=== PATIENT | male | born 1930 | race Caucasian/White ===

== ENCOUNTER 2018-12-17 12:29 | Inpatient (IN) | payer MEDICARE ==
[2018-12-17] MEDS ORDERED: NORMAL SALINE 1000 ML 500 ML IV ONE (12:43)
--- NOTE | 2018-12-17 13:17 | ER Document Report ---
Addendum entered and electronically signed by EMEKA BARAKAT PA 12/17/18 20:34: Course - Re-evaluation Re-evalutation: 12/17/18 20:32 Patient is still waiting to be transported upstairs. Nurse and respiratory therapist informed me that patient has 88% pulse oxygen saturation despite being on BiPAP with FiO2 of 100%. Patient was saturating in the 70s without the BiPAP. Patient with acute renal failure, hyperkalemia, sepsis. I did go to bedside, patient is currently 90% on the BiPAP. Family fortunately is at bedside, I did discuss with them that patient is in very poor condition and there is a good chance that he will pass away tonight or within the next 24 hours. They confirm that he is DNR/DNI and they state they are in understanding of his critical condition. They have no additional questions at this time. - Vital Signs Vital signs: Temp Pulse Resp BP Pulse Ox 97.9 F 133 H 27 H 137/60 H 80 L 12/17/18 18:00 12/17/18 18:01 12/17/18 20:23 12/17/18 14:53 12/17/18 20:23 - Laboratory Result Diagrams: 12/17/18 14:21 12/17/18 15:58 Laboratory results interpreted by me: 12/17/18 12/17/18 12/17/18 14:21 15:58 16:25 WBC 18.9 H RBC 3.67 L Hgb 10.6 L Hct 34.1 L MCHC 31.2 L RDW 16.6 H Plt Count 511 H Seg Neuts % (Manual) 84 H Abs Neuts (Manual) 15.9 H Sodium 132.6 L Potassium 6.8 H* Chloride 97 L Carbon Dioxide 10 L* Anion Gap 26 H BUN 98 H Creatinine 5.09 H Est GFR ( Amer) 13 L Est GFR (Non-Af Amer) 11 L Glucose 422 H* Lactic Acid 4.6 H Total Bilirubin 1.9 H Direct Bilirubin 1.6 H Alkaline Phosphatase 230 H Urine Protein Urine Glucose (UA) Urine Blood Ur Leukocyte Esterase 12/17/18 16:28 WBC RBC Hgb Hct MCHC RDW Plt Count Seg Neuts % (Manual) Abs Neuts (Manual) Sodium Potassium Chloride Carbon Dioxide Anion Gap BUN Creatinine Est GFR ( Amer) Est GFR (Non-Af Amer) Glucose Lactic Acid Total Bilirubin Direct Bilirubin Alkaline Phosphatase Urine Protein 100 H Urine Glucose (UA) 50 H Urine Blood MODERATE H Ur Leukocyte Esterase MODERATE H Original Note: ED General - General Chief Complaint: Altered Mental Status Stated Complaint: ABDOMINAL PAIN Time Seen by Provider: 12/17/18 12:36 Primary Care Provider: MAGGIE BROWN MD [Primary Care Provider] - Follow up as needed Notes: 88-year-old male presents to the emergency department for altered mental status x1 day, nausea and vomiting, and seizure activity last night. He was brought in by EMS and report received from them. Patient is alert to self place and year but did not know his age. Initial vital signs were blood pressure of 76/38 and heart rate of 109. Difficult to obtain ROS from patient and she is hard to understand and is somewhat altered. Patient is very cachectic. Is a resident of [place]. TRAVEL OUTSIDE OF THE [place] IN LAST 30 DAYS: No - Related Data Allergies/Adverse Reactions: No Known Allergies Allergy (Unverified 12/09/18 13:16) Past Medical History - Social History Smoking Status: Unknown if Ever Smoked Family History: Reviewed & Not Pertinent - Past Medical History Cardiac Medical History: Reports: Hx Hypercholesterolemia, Hx Hypertension Endocrine Medical History: Reports: Hx Diabetes Mellitus Type 2, Hx Hypothyroidism Renal/ Medical History: Denies: Hx Peritoneal Dialysis Psychiatric Medical History: Reports: Hx Dementia Past Surgical History: Reports: Other - Past surgical history is not available. Review of Systems - Review of Systems -: Yes ROS unobtainable due to patient's medical condition Physical Exam - Vital signs Vitals: Temp Pulse Resp BP Pulse Ox 95.8 F L 106 H 21 H 121/62 97 12/17/18 12:30 12/17/18 12:30 12/17/18 12:30 12/17/18 12:30 12/17/18 12:30 - Notes Notes: PHYSICAL EXAMINATION: Reviewed vital signs and charting by RN GENERAL: Alert. No acute distress. HEAD: Normocephalic, atraumatic. EYES: Pupils equal and round. Extraocular movements intact. ENT: Oral mucosa dry, tongue midline. NECK: Full range of motion. Trachea midline. LUNGS: Clear to auscultation bilaterally, no wheezes, rales, or rhonchi. No respiratory distress. HEART: Regular rate and rhythm. No murmur ABDOMEN: soft, non-tender. Non-distended. Bowel sounds present. no McBurney's point tenderness, no Sparks sign. EXTREMITIES: Moves all 4 extremities spontaneously. No edema, No cyanosis. Normal distal neurovascular exam BACK: No CVAT NEUROLOGIC: Oriented and appropriate. Normal speech. PSYCH: Normal affect, normal mood. SKIN: Warm, dry, normal turgor. No rashes or lesions noted. Course - Re-evaluation Re-evalutation: 12/17/18 13:17 Cachectic and hypotensive. Patient is a DNR. We will get blood work and fluid resuscitate him. CT head will be obtained. 12/17/18 16:55 CT head unremarkable for any intracranial pathology. Patient has a significant leukocytosis of 18,900. Lactate 4.6. Discussed with Dr. Valle supervising physician. He stated to give 1 L normal saline and Rocephin 1 g IV. Patient also with a potassium of 6.8, glucose 422, and bicarb of 10. Calcium gluconate 2 g IV ordered with insulin 10 units. Also, will give 1 amp of bicarb. Urine sent to the lab and is currently pending chest x-ray taken and radiologist read pending. I initiated contact with Dr. Vizcaino, hospitalist who is requesting the work-up to be complete. 12/17/18 17:15 EKG obtained and does show globally peaked T waves. Calcium gluconate has been initiated. 12/17/18 18:16 Patient is getting his calcium gluconate. Second liter normal saline ordered. I spoke with Dr. Carlson who wanted to find out if the family would want to dialyze. I spoke with Dr. Valle who felt that the patient should not be dialyzed is a DNR. He called Dr. Robi Anthony, hammerer, who agreed that patient should not be dialyzed. I then called Dr. Carlson back and clarified the wishes and accepted patient for full admission. - Vital Signs Vital signs: Temp Pulse Resp BP Pulse Ox 97.9 F 133 H 35 H 137/60 H 89 L 12/17/18 18:00 12/17/18 18:01 12/17/18 18:01 12/17/18 14:53 12/17/18 18:01 - Laboratory Result Diagrams: 12/17/18 14:21 12/17/18 15:58 Laboratory results interpreted by me: 12/17/18 12/17/18 12/17/18 14:21 15:58 16:25 WBC 18.9 H RBC 3.67 L Hgb 10.6 L Hct 34.1 L MCHC 31.2 L RDW 16.6 H Plt Count 511 H Seg Neuts % (Manual) 84 H Abs Neuts (Manual) 15.9 H Sodium 132.6 L Potassium 6.8 H* Chloride 97 L Carbon Dioxide 10 L* Anion Gap 26 H BUN 98 H Creatinine 5.09 H Est GFR ( Amer) 13 L Est GFR (Non-Af Amer) 11 L Glucose 422 H* Lactic Acid 4.6 H Total Bilirubin 1.9 H Direct Bilirubin 1.6 H Alkaline Phosphatase 230 H Urine Protein Urine Glucose (UA) Urine Blood Ur Leukocyte Esterase 12/17/18 16:28 WBC RBC Hgb Hct MCHC RDW Plt Count Seg Neuts % (Manual) Abs Neuts (Manual) Sodium Potassium Chloride Carbon Dioxide Anion Gap BUN Creatinine Est GFR ( Amer) Est GFR (Non-Af Amer) Glucose Lactic Acid Total Bilirubin Direct Bilirubin Alkaline Phosphatase Urine Protein 100 H Urine Glucose (UA) 50 H Urine Blood MODERATE H Ur Leukocyte Esterase MODERATE H Discharge - Discharge Clinical Impression: Lactic acidosis, Hyperkalemia, Generalized weakness Sepsis Qualifiers: Sepsis type: sepsis due to unspecified organism Qualified Code(s): A41.9 - Sepsis, unspecified organism Urinary tract infection Qualifiers: Urinary tract infection type: acute cystitis Hematuria presence: with hematuria Qualified Code(s): N30.01 - Acute cystitis with hematuria Altered mental status Qualifiers: Altered mental status type: disorientation Qualified Code(s): R41.0 - Disorientation, unspecified Acute on chronic renal failure Qualifiers: Acute renal failure type: unspecified Chronic kidney disease stage: unspecified stage Qualified Code(s): N17.9 - Acute kidney failure, unspecified; N18.9 - Chronic kidney disease, unspecified Disposition: ADMITTED INPATIENT Admitting Provider: BENJI Baldwin Unit Admitted: [facility] Referrals: MAGGIE BROWN MD [Primary Care Provider] - Follow up as needed
[2018-12-17 14:40] LABS: HEMATOCRIT 34.1 % (37.9-51.0); HEMOGLOBIN 10.6 g/dL (13.5-17.0); MEAN CORPUSCULAR HGB CONC 31.2 g/dL (32.0-36.0); PLATELET COUNT 511 10^3/uL (150-450); RED BLOOD COUNT 3.67 10^6/uL (4.35-5.55); RED CELL DISTRIBUTION WIDTH 16.6 % (11.5-14.0); WHITE BLOOD COUNT 18.9 10^3/uL (4.0-10.5)
[2018-12-17 15:08] LABS: MEAN CORPUSCULAR VOLUME 93 fl (80-97)
[2018-12-17 15:10] LABS: ABSOLUTE LYMPHOCYTES# (MANUAL) 2.5 10^3/uL (0.5-4.7); ABSOLUTE MONOCYTES # (MANUAL) 0.6 10^3/uL (0.1-1.4); ABSOLUTE NEUTROPHILS# (MANUAL) 15.9 10^3/uL (1.7-8.2); BASOPHILS % (MANUAL) 0 % (0-2); EOSINOPHILS % (MANUAL) 0 % (0-6); LYMPHOCYTES % (MANUAL) 13 % (13-45); MONOCYTES % (MANUAL) 3 % (3-13); SEGMENTED NEUTROPHILS % (MAN) 84 % (42-78); TOTAL CELLS COUNTED 100
[2018-12-17 15:12] LABS: PLATELET CLUMPS PRESENT; PLATELET COMMENT ADEQUATE; RBC MORPHOLOGY COMMENT MN
--- NOTE | 2018-12-17 15:15 | RADIOLOGY REPORT (SQ) ---
EXAM DESCRIPTION: CT HEAD WITHOUT COMPLETED DATE/TIME: 12/17/2018 3:05 pm REASON FOR STUDY: AMS COMPARISON: None. TECHNIQUE: Axial images acquired through the brain without intravenous contrast. Images reviewed wi th bone, brain and subdural windows. Additional sagittal and coronal reconstructions were generated. Images stored on PACS. All CT scanners at this facility use dose modulation, iterative reconstruction, and/or weight based d osing when appropriate to reduce radiation dose to as low as reasonably achievable (ALARA). [facility]: Dose Right [facility]: CareDose [facility]: Dose Right [facility]: Teradose 4D [facility]: [employer] RADIATION DOSE: CT Rad equipment meets quality standard of care and radiation dose reduction techniq ues were employed. CTDIvol: 23.1 mGy. DLP: 499 mGy-cm.mGy. LIMITATIONS: None. FINDINGS: VENTRICLES: Prominent. CEREBRUM: No masses. No hemorrhage. No midline shift. Areas of low density in the white matter mos t likely due to chronic micro-vascular ischemic change. No evidence for acute infarction. CEREBELLUM: No masses. No hemorrhage. No alteration of density. No evidence for acute infarction. EXTRAAXIAL SPACES: Age-related involutional change. No fluid collections. No masses. ORBITS AND GLOBE: No intra- or extraconal masses. Normal contour of globe without masses. CALVARIUM: No fracture. PARANASAL SINUSES: No fluid or mucosal thickening. SOFT TISSUES: No mass or hematoma. OTHER: No other significant finding. IMPRESSION: CHRONIC CHANGES OF ATROPHY AND MICROVASCULAR ISCHEMIA. NO ACUTE PROCESS. EVIDENCE OF ACUTE STROKE: NO. TECHNICAL DOCUMENTATION: JOB ID: [id number] Quality ID # [id number]: Final reports with documentation of one or more dose reduction techniques (e.g., Au tomated exposure control, adjustment of the mA and/or kV according to patient size, use of iterative reconstruction technique) 2010 [employer]- All Rights Reserved Reading location - IP/workstation name: [email or web address]
[2018-12-17] MEDS ORDERED: CEFTRIAXONE 1 GM/D5W RTU 1 GM/50 ML RTUPB IV ONE (16:28)
[2018-12-17 16:29] LABS: ALANINE AMINOTRANSFERASE 49 U/L (21-72); ALBUMIN 3.7 g/dL (3.5-5.0); ALKALINE PHOSPHATASE 230 U/L (38-126); ASPARTATE AMINO TRANSFERASE 54 U/L (17-59); BILIRUBIN,DIRECT 1.6 mg/dL (0.0-0.4); BILIRUBIN,TOTAL 1.9 mg/dL (0.2-1.3); BLOOD UREA NITROGEN 98 mg/dL (7-20); CALCIUM 9.2 mg/dL (8.4-10.2); TOTAL PROTEIN 7.5 g/dL (6.3-8.2)
[2018-12-17 16:34] LABS: CHLORIDE 97 mmol/L (98-107); SODIUM 132.6 mmol/L (137-145)
[2018-12-17 16:41] LABS: ANION GAP 26 (5-19)
[2018-12-17 16:43] LABS: GLUCOSE 422 mg/dL (75-110)
[2018-12-17 16:44] LABS: CARBON DIOXIDE 10 mmol/L (22-30); POTASSIUM 6.8 mmol/L (3.6-5.0)
[2018-12-17] MEDS ORDERED: CALCIUM GLUCONATE 1000 MG/10 ML INJ IV ONE (16:47)
[2018-12-17] MEDS ORDERED: INSULIN REG, HUMAN 100 UNIT/ML 3 ML VIAL (PYX) IV ONE (16:50)
[2018-12-17 17:08] LABS: APPEARANCE,URINE TURBID; BILIRUBIN,URINE NEGATIVE (NEGATIVE); COLOR,URINE YELLOW; GLUCOSE, URINE 50 mg/dL (NEGATIVE); KETONES,URINE NEGATIVE (NEGATIVE); LEUKOCYTE ESTERASE,URINE MODERATE (NEGATIVE); NITRITE,URINE NEGATIVE (NEGATIVE); PROTEIN,URINE 100 mg/dL (NEGATIVE); URINE SPECIFIC GRAVITY 1.011; UROBILINOGEN,URINE NEGATIVE mg/dL (<2.0)
[2018-12-17] MEDS ORDERED: DEXTROSE 5%-WATER 1000 ML 1,000 ML with SODIUM BICARBONATE 100 MEQ IV PRN ×4 (17:16→18:34)
[2018-12-17] MEDS ORDERED: NORMAL SALINE 1000 ML 1,000 ML IV ONE (17:36)
--- NOTE | 2018-12-17 17:37 | RADIOLOGY REPORT (SQ) ---
EXAM DESCRIPTION: CHEST SINGLE VIEW COMPLETED DATE/TIME: 12/17/2018 4:40 pm REASON FOR STUDY: AMS COMPARISON: 12/09/2018 TECHNIQUE: Single frontal radiographic view of the chest acquired. NUMBER OF VIEWS: One view. LIMITATIONS: None. FINDINGS: LUNGS AND PLEURA: No pneumothorax. No consolidation or pleural effusion. MEDIASTINUM AND HILAR STRUCTURES: Stable. HEART AND VASCULAR STRUCTURES: Stable. BONES: No acute findings. HARDWARE: None in the chest. OTHER: No other significant finding. IMPRESSION: NO ACUTE FINDINGS. TECHNICAL DOCUMENTATION: JOB ID: [id number] [place]-72 2010 [employer]- All Rights Reserved Reading location - IP/workstation name: [email or web address]
[2018-12-17] MEDS ORDERED: ACETAMINOPHEN 650 MG SUPP.RECT PR PRN (18:20)
[2018-12-17] MEDS ORDERED: ONDANSETRON HCL INJ/PF 4 MG/2 ML SDV IV PRN (18:20)
[2018-12-17] MEDS ORDERED: DEXTROSE 50%-WATER 25 GM/50 ML DISP.SYRIN IV PRN ×2 (18:32)
[2018-12-17] MEDS ORDERED: GLUCAGON,HUMAN RECOMB 1 MG INJ IM PRN (18:32)
[2018-12-17] MEDS ORDERED: DEXTROSE 40% GEL 15 GM TUBE PO PRN ×2 (18:32)
[2018-12-17] MEDS ORDERED: SODIUM POLYSTYRENE SULFONATE 15 GM/60 ML PO ONE (18:52)
--- NOTE | 2018-12-17 19:19 | PDOC H&P ---
History of Present Illness Admission Date/PCP: 12/17/18 18:41 MAGGIE BROWN MD Patient complains of: Nausea, vomiting and abdominal pain History of Present Illness: SUDHIR LOYA is a 88 year old male with past medical history of dementia, chronic kidney disease stage IV, hyperkalemia, hypertension and diabetes. He presented to [facility]'s emergency room this afternoon with complaints of nausea, vomiting abdominal pain for the last 24 hours from [facility]. Patient had been recently hospitalized at [facility] on 12/01/2018 to 12/02/2018 with hyperkalemia and chest pain. His potassium at that time was 5.6. He was ruled out for acute coronary syndrome. BUN was 75 and creatinine was 4.25. He was discharged back to [facility] for continued care. Patient presently is difficult to understand. He is unable to answer questions when asked. Unfortunately there is no family at the bedside either. Past Medical History Cardiac Medical History: Reports: Hyperlipidema, Hypertension Pulmonary Medical History: Reports: None EENT Medical History: Reports: None Endocrine Medical History: Reports: Diabetes Mellitus Type 2, Hypothyroidism Renal/ Medical History: Reports: Chronic Kidney Disease Malignancy Medical History: Reports: None GI Medical History: Reports: None Musculoskeltal Medical History: Reports: None Skin Medical History: Reports: None Psychiatric Medical History: Reports: Dementia Hematology: Reports: Anemia Infectious Medical History: Reports: None Past Surgical History Past Surgical History: Reports: Other - Past surgical history is not available. Social History Information Source: Emergency Med Personnel, Outside Facility Records Lives with: Skilled Nursing Smoking Status: Unknown if Ever Smoked Frequency of Alcohol Use: None Hx Recreational Drug Use: No Drugs: None Hx Prescription Drug Abuse: No - Advance Directive Resuscitation Status: Do Not Resuscitate Family History Family History: Reviewed & Not Pertinent Parental Family History Reviewed: No Children Family History Reviewed: No Sibling(s) Family History Reviewed.: No Medication/Allergy Home Medications: Unobtainable 12/17/18 Allergies/Adverse Reactions: No Known Allergies Allergy (Unverified 12/09/18 13:16) Review of Systems ROS unobtainable: Due to mental status Physical Exam Vital Signs: Temp Pulse Resp BP Pulse Ox 97.9 F 133 H 35 H 137/60 H 89 L 12/17/18 18:00 12/17/18 18:01 12/17/18 18:01 12/17/18 14:53 12/17/18 18:01 Intake & Output 12/16/18 12/17/18 12/18/18 06:59 06:59 06:59 Intake Total 550 Balance 550 Weight 73.4 kg General appearance: PRESENT: thin, well-developed, other - elderly, ashen Eye exam: PRESENT: conjunctiva pale Ear exam: PRESENT: normal external ear exam Mouth exam: PRESENT: dry mucosa Teeth exam: PRESENT: edentulous Neck exam: ABSENT: carotid bruit, JVD, lymphadenopathy, thyromegaly Respiratory exam: PRESENT: decreased breath sounds, symmetrical, tachypnea Cardiovascular exam: PRESENT: +S1, +S2, tachycardia Pulses: PRESENT: normal carotid pulses, normal radial pulses Vascular exam: PRESENT: normal capillary refill GI/Abdominal exam: PRESENT: normal bowel sounds, soft. ABSENT: distended, guarding, mass, organolmegaly, rebound, tenderness Rectal exam: PRESENT: deferred Extremities exam: PRESENT: full ROM. ABSENT: calf tenderness, clubbing, pedal edema Musculoskeletal exam: PRESENT: normal inspection Neurological exam: PRESENT: altered, CN II-XII grossly intact, other - speech is garbled and uncomprehensible Psychiatric exam: PRESENT: flat affect Skin exam: PRESENT: dry, pallor, warm Results Laboratory Results: 12/17/18 14:21 12/17/18 15:58 12/17/18 12/17/18 12/17/18 14:21 14:21 15:37 WBC 18.9 H RBC 3.67 L Hgb 10.6 L Hct 34.1 L MCV 93 D MCH 29.0 MCHC 31.2 L RDW 16.6 H Plt Count 511 H Seg Neutrophils % Not Reportable Lymphocytes % Not Reportable Monocytes % Not Reportable Eosinophils % Not Reportable Basophils % Not Reportable Absolute Neutrophils Not Reportable Absolute Lymphocytes Not Reportable Absolute Monocytes Not Reportable Absolute Eosinophils Not Reportable Absolute Basophils Not Reportable Sodium Cancelled Potassium Cancelled Chloride Cancelled Carbon Dioxide Cancelled Anion Gap Cancelled BUN Cancelled Creatinine Cancelled Est GFR ( Amer) Cancelled Est GFR (Non-Af Amer) Cancelled Glucose Cancelled Lactic Acid Cancelled Calcium Cancelled Total Bilirubin Cancelled AST Cancelled ALT Cancelled Alkaline Phosphatase Cancelled Total Protein Cancelled Albumin Cancelled Urine Color Urine Appearance Urine pH Ur Specific [place]et Urine Protein Urine Glucose (UA) Urine Ketones Urine Blood Urine Nitrite Ur Leukocyte Esterase Urine WBC (Auto) Urine RBC (Auto) 12/17/18 12/17/18 12/17/18 15:58 16:25 16:28 WBC RBC Hgb Hct MCV MCH MCHC RDW Plt Count Seg Neutrophils % Lymphocytes % Monocytes % Eosinophils % Basophils % Absolute Neutrophils Absolute Lymphocytes Absolute Monocytes Absolute Eosinophils Absolute Basophils Sodium 132.6 L Potassium 6.8 H* Chloride 97 L Carbon Dioxide 10 L* Anion Gap 26 H BUN 98 H Creatinine 5.09 H Est GFR ( Amer) 13 L Est GFR (Non-Af Amer) 11 L Glucose 422 H* Lactic Acid 4.6 H Calcium 9.2 Total Bilirubin 1.9 H AST 54 ALT 49 Alkaline Phosphatase 230 H Total Protein 7.5 Albumin 3.7 Urine Color YELLOW Urine Appearance TURBID Urine pH 5.0 Ur Specific Burnet 1.011 Urine Protein 100 H Urine Glucose (UA) 50 H Urine Ketones NEGATIVE Urine Blood MODERATE H Urine Nitrite NEGATIVE Ur Leukocyte Esterase MODERATE H Urine WBC (Auto) >182 Urine RBC (Auto) 11 Impressions: Head CT 12/17/18 12:37 IMPRESSION: CHRONIC CHANGES OF ATROPHY AND MICROVASCULAR ISCHEMIA. NO ACUTE PROCESS. EVIDENCE OF ACUTE STROKE: NO. Chest X-Ray 12/17/18 15:30 IMPRESSION: NO ACUTE FINDINGS. Assessment and Plan - Diagnosis (1) Acute on chronic renal failure Qualifiers: Acute renal failure type: unspecified Chronic kidney disease stage: unspecified stage Qualified Code(s): N17.9 - Acute kidney failure, unspecified; N18.9 - Chronic kidney disease, unspecified Is this a current diagnosis for this admission?: Yes Plan: Patient will be placed on IV hydration with D5W and sodium bicarb. He was discharged last week with a creatinine of 4.25. Is found to have urinary tract infection as well. He has also been vomiting over the last 24 hours (2) Hyperkalemia Is this a current diagnosis for this admission?: Yes Plan: Patient has been given calcium gluconate and insulin in the emergency room. He will be given Ventassa orally, nursing does not think patient will take Ka yexalate. Will monitor chemistry every 6 hours overnight. Family is aware that he is critically ill according to the emergency room provider. (3) Lactic acidosis Is this a current diagnosis for this admission?: Yes Plan: He will be given sodium bicarbonate and D5W. At 100 cc/h (4) Sepsis Qualifiers: Sepsis type: sepsis due to unspecified organism Qualified Code(s): A41.9 - Sepsis, unspecified organism Is this a current diagnosis for this admission?: Yes Plan: Patient has obvious urinary tract infection. Blood cultures x2 have been obtained. He was started on IV ceftriaxone. Cultures were pending (5) Urinary tract infection Qualifiers: Urinary tract infection type: acute cystitis Hematuria presence: with hematuria Qualified Code(s): N30.01 - Acute cystitis with hematuria Is this a current diagnosis for this admission?: Yes Plan: As above. (7) Diabetes 1.5, managed as type 1 Is this a current diagnosis for this admission?: Yes Plan: Patient will be placed on sliding scale coverage every 6 hours. He will be n.p.o. except for ice chips and meds (8) Altered mental status Qualifiers: Altered mental status type: disorientation Qualified Code(s): R41.0 - Disorientation, unspecified Is this a current diagnosis for this admission?: Yes Plan: Dementia. (9) Generalized weakness Is this a current diagnosis for this admission?: Yes Plan: Unsure what patient's baseline - Time Time Spent with patient: 35 or more minutes Total Critical Time (Minutes): 30 Medications reviewed and adjusted accordingly: Yes Anticipated discharge: SNF - Inpatient Certification Based on my medical assessment, after consideration of the patient's comorbidities, presenting symptoms, or acuity I expect that the services needed warrant INPATIENT care.: Yes I certify that my determination is in accordance with my understanding of Medicare's requirements for reasonable and necessary INPATIENT services [42 CFR 412.3e].: Yes Medical Necessity: Need For IV Fluids - Patient would benefit from hospice consult unfortunately family is presently not available
[2018-12-17] MEDS ORDERED: PATIROMER 8.4 GM SUSP PACKET PO ONE (20:00)
[2018-12-17 20:41] LABS: BLOOD UREA NITROGEN 93 mg/dL (7-20); CALCIUM 9.5 mg/dL (8.4-10.2); GLUCOSE 347 mg/dL (75-110)
[2018-12-17 20:47] LABS: CHLORIDE 102 mmol/L (98-107); SODIUM 131.7 mmol/L (137-145)
[2018-12-17 20:52] LABS: ANION GAP 20 (5-19)
[2018-12-17 20:56] LABS: CARBON DIOXIDE 10 mmol/L (22-30); POTASSIUM 6.1 mmol/L (3.6-5.0)
--- NOTE | 2018-12-17 20:57 | EKG REPORT ---
SEVERITY:- ABNORMAL ECG - SINUS TACHYCARDIA NONSPECIFIC ST-T CHANGES : Confirmed by: Jan Lacy MD 17-Dec-2018 20:56:41
[2018-12-17] MEDS ORDERED: HEPARIN SOD (PORCINE) 5,000 UNIT/ML 1 ML SYRINGE SUBCUT SCH (22:00)
[2018-12-17] MEDS ORDERED: FAMOTIDINE INJ/PF 20 MG/2 ML SDV IV SCH ×2 (22:00)
[2018-12-17 22:36] VITALS: BP 58/38
[2018-12-18] MEDS ORDERED: INSULIN LISPRO 100 UNIT/ML 3 ML VIAL SUBCUT SCH
--- NOTE | 2018-12-18 07:21 | Death Summary ---
Summary Date : 12/16/18 Time of :: 22:35 Resuscitation Status: Do Not Resuscitate Consulting Provider: Dr Kae Benton - Final Diagnosis (1) Acute on chronic renal failure Is this a current diagnosis for this admission?: Yes (2) Hyperkalemia Is this a current diagnosis for this admission?: Yes (3) Lactic acidosis Is this a current diagnosis for this admission?: Yes (4) Sepsis Is this a current diagnosis for this admission?: Yes (5) Urinary tract infection Is this a current diagnosis for this admission?: Yes (7) Diabetes 1.5, managed as type 1 Is this a current diagnosis for this admission?: Yes (8) Altered mental status Is this a current diagnosis for this admission?: Yes (9) Generalized weakness Is this a current diagnosis for this admission?: Yes Hospital Course:: SUDHIR LOYA is a 88 year old male with past medical history of dementia, chronic kidney disease stage IV, hyperkalemia, hypertension and diabetes. He presented to [facility]'s emergency room this afternoon with complaints of nausea, vomiting abdominal pain for the last 24 hours from [facility]. Patient had been recently hospitalized at [facility] on 12/01/2018 to 12/02/2018 with hyperkalemia and chest pain. His potassium at that time was 5.6. He was ruled out for acute coronary syndrome. BUN was 75 and creatinine was 4.25. He was discharged back to [facility] for continued care. Patient presently is difficult to understand and unable to give any history. He is unable to answer questions when asked. Unfortunately there is no family at the bedside either. ER provider states he spoke with family and they understand the critical nature of his illness. He is a written DNR/DNI and they understand he is not a candidate for dialysis. His condition deteriorated over the next several hours and he became hypotensive and bradycardic. He became asystolic and was pronounced at 2235.
[2018-12-18] MEDS ORDERED: CEFTRIAXONE 1 GM/D5W RTU 1 GM/50 ML RTUPB IV SCH (10:00)
[2018-12-18] MEDS ORDERED: CEFTRIAXONE SODIUM 1,000 MG in DEXTROSE 5%-WATER 50 ML IV SCH (18:00)
== END 2018-12-17 22:05 | disposition expired | DRG 872 ==
LOC: ER 12:29 → EH 18:41 → 3S 21:59
PROVIDERS: ADMIT Internal Medicine; ATTEND Internal Medicine
DX: A41.9 Sepsis, unspecified organism (principal); N17.9 Acute kidney failure, unspecified; N18.4 Chronic kidney disease, stage 4 (severe); N30.01 Acute cystitis with hematuria; R64 Cachexia; E13.22 Other specified diabetes mellitus with diabetic chronic kidney disease; E87.5 Hyperkalemia; F03.90 Unspecified dementia, unspecified severity, without behavioral disturbance, psychotic disturbance, mood disturbance, and anxiety; Z66 Do not resuscitate; I12.9 Hypertensive chronic kidney disease with stage 1 through stage 4 chronic kidney disease, or unspecified chronic kidney disease; E78.5 Hyperlipidemia, unspecified; E03.9 Hypothyroidism, unspecified; R53.1 Weakness
CPT/HCPCS: 36415; 51701; 70450; 71045; 80048; 80053; 81001; 82962; 83036; 83605; 84443; 85025; 93005; 93010; 94660; 96361; 96365; 96367; 99285; J0610; J0696; J1815; J3490; J7030; J7060